=== PATIENT | male | born 1985 ===

== ENCOUNTER 2016-10-01 14:29 | Outpatient (RCR) | payer OTHER | END 2016-10-16 | LOC: WSOH | DX: M25.512 Pain in left shoulder (principal); X50.0XXA Overexertion from strenuous movement or load, initial encounter; Y99.0 Civilian activity done for income or pay | CPT/HCPCS: J1030 ==

== ENCOUNTER 2016-11-02 13:00 | Outpatient (RCR) | payer OTHER | END 2017-01-07 | disposition home or self-care (01) | LOC: WSPT | DX: M25.512 Pain in left shoulder (principal) ==

== ENCOUNTER 2016-11-02 13:30 | Outpatient (RCR) | payer OTHER | END 2017-01-31 | LOC: WSOH | DX: M25.512 Pain in left shoulder (principal); M75.82 Other shoulder lesions, left shoulder; X50.0XXA Overexertion from strenuous movement or load, initial encounter; Y99.0 Civilian activity done for income or pay ==